=== PATIENT | male | born 1955 | race Caucasian/White ===

== ENCOUNTER 2023-04-22 15:54 | Emergency (ER) | payer MEDICARE, BC, SELFPAY ==
[2023-04-22 17:52] VITALS: BP 126/70; PULSE 106; RESP 16; TEMP 36.1; O2SAT 99; BMI 24.3
--- NOTE | 2023-04-22 19:42 | ED.GENADULT ---
HPI - General Adult General Chief complaint: Constipation Stated complaint: anal blockage Time Seen by Provider: 04/22/23 19:42 History of Present Illness HPI narrative: Patient here today with constipation and loose stool diarrhea passing around what pressure feels like a baseball. History of constipation but never this bad. Took colace this morning, two tablet. No suppositories or enemas. History of pancreatitis, back pain. Two advil at 11 am. 67-year-old man presenting to the emergency department with concern of blockage intense pressure in the rectal area. Sounds like constipation has been building over the week. He has been treating with Colace for what he thinks is some constipation an hour the last couple of days has had loose stool passing around this pressure. He has had to wear depends. He has had constipation before but never like this. Have a history of multilevel fusion in the upper back/neck as well as some surgery in the low back and he is feeling all intense pressure into thighs but not describing radiation down his legs. Feels like he is having a little trouble getting urine out as well. This might be contributing to some of the pressure he is feeling. No fever. Has not been able to sleep for couple of days for the discomfort. Related Data Home Medications Medication Instructions Recorded Confirmed atorvastatin 20 mg tablet 20 mg PO DAILY 04/22/23 04/22/23 lisinopril 10 1 tab PO DAILY 04/22/23 04/22/23 mg-hydrochlorothiazide 12.5 mg tablet Allergies Allergy/AdvReac Type Severity Reaction Status Date / Time No Known Drug Allergies Allergy Verified 04/22/23 17:50 Review of Systems Status of ROS: Reports: 6 or more systems reviewed and unremarkable except as noted in History and below PFSH PFS Social History Smoking Status: Never smoker Do you use any of these nicotine containing products: None Second hand tobacco smoke exposure: No How often do you have a drink containing alcohol: never How often do you have six or more drinks on one occasion: Never AUDIT-C Alcohol total score: 0 Non-prescribed substance use: denies use service: No Exam Narrative: Exam Narrative: Tall man. Little tremulous sitting at the edge of the bed. Breathing easily however. Speaking easily. Moves all extremities with out difficulty. Well-perfused peripherally. Heart is in an elevated rate but regular rhythm. Lungs are clear. Abdomen with present normal bowel sounds. Increasing tension a little bit throughout the suprapubic/lower abdomen. Sense of fullness. No flank pain specifically. Const: Vital Signs, click to edit/add: Vital Signs - 24 hr 04/22/23 17:52 Temperature 97.0 F L Pulse Rate [Right Pulse Oximeter] 106 H Respiratory Rate 16 Blood Pressure [Ri ght Upper Arm] 126/70 Pulse Oximetry 99 Oxygen Delivery Me thod Room Air Documenting provider has reviewed patient's vital signs: yes Course Vital Signs Vital signs: Initial Vital Signs Temperature 97.0 F L 04/22/23 17:52 Temperature Source Temporal Artery Scan 04/22/23 17:52 Pulse Rate 106 H 04/22/23 17:52 Pulse Rhythm Regular 04/22/23 17:52 Respiratory Rate 16 04/22/23 17:52 Blood Pressure 126/70 04/22/23 17:52 Blood Pressure Mean 88 04/22/23 17:52 Blood Pressure Position Sitting 04/22/23 17:52 Pulse Oximetry 99 04/22/23 17:52 Oxygen Delivery Method Room Air 04/22/23 17:52 Vital Signs Temperature 97.0 F L 04/22/23 17:52 Pulse Rate 106 H 04/22/23 17:52 Respiratory Rate 16 04/22/23 17:52 Blood Pressure 126/70 04/22/23 17:52 Pulse Oximetry 99 04/22/23 17:52 Oxygen Delivery Method Room Air 04/22/23 17:52 Temperature 97.0 F L 04/22/23 17:52 Pulse Rate 106 H 04/22/23 17:52 Respiratory Rate 16 04/22/23 17:52 Blood Pressure 126/70 04/22/23 17:52 Pulse Oximetry 99 04/22/23 17:52 Oxygen Delivery Method Room Air 04/22/23 17:52 Medical Decision Making MDM Narrative Medical decision making narrative: Constipation or obstipation I think is leading in differential. Would do a flat plate just to verify some stool location or absence of unusual air-fluid levels that might indicate more of obstruction/ileus. Does not seem to be in location for pancreatitis. May have urinary retention contributing to some of what he is feeling into his back. Will be doing a bladder scan as well. To the discomfort he has been experiencing will placing an IV and receiving IV fluids as well as morphine and ketorolac. I anticipate large volume enema and possible disimpaction. X-ray of the abdomen reviewed by me indeed shows large volume of stool in the rectal colon. Bladder scanned for somewhere between 200-300 mL Fleets was placed. Hard stool encountered. Ultimately Mr. Mc did have a bowel movement and experienced relief. Anxious to leave. Looked otherwise much more relaxed. See patient discharge plan Medical Records Medical records reviewed: Yes I reviewed the patient's medical records Discharge Plan Discharge Clinical Impression: Constipation, Obstipation Patient Disposition: Home w/ Parent or Adult Condition: Improved Additional Instructions: If you notice stool is considering to be quite hard, may want to place an enema once or twice daily over the next couple of days. Another option is suppository overnight. Be sure to get adequate water in drinking 2-3 L of water a day. May want to take MiraLax equivalent a couple to 3 times daily over the next 1-2 weeks adjusting for stool consistency. If you do feel like you need a larger bowel cleanout, magnesium citrate can be helpful. See also fruit lacks recipe for regular dosing. May want to add more orange juice into the mix or modify as you see fit. Prescriptions: No Action atorvastatin 20 mg tablet 20 mg PO DAILY lisinopril-hydrochlorothiazide 10-12.5 mg tablet 1 tab PO DAILY Follow Up/Referrals: Sean Bello MD [Primary Care Provider] - Stand Alone Forms: [employer] Info Instructions
--- NOTE | 2023-04-22 19:55 | CRLHL7_ITS ---
For Patients: As a result of the Century Cures Act, medical imaging exams and procedure reports are released immediately into your electronic medical record. You may view this report before your referring provider. If you have questions, please contact your health care provider. Indication: Constipation. Technique: Abdomen 2 view. Comparison: None. Findings/Impression: Bowel: Bowel pattern is normal. Moderate to large volume stool in the rectum. Soft tissues: No sign of free air. No sign of soft tissue mass. No suspicious calcifications. Bones: Unremarkable for age. Dictated by Jeffrey Combs MD @ 04/22/2023 9:26:50 PM (Electronically Signed)
[2023-04-22] MEDS: 0.9 % SODIUM CHLORIDE 1000 ml 1,000 ML IV (20:11)
[2023-04-22] MEDS: KETOROLAC 30 MG/ML inj IVP (20:15)
[2023-04-22] MEDS: MORPHINE 4 MG/ML INJ IVP (20:15)
== END 2023-04-22 22:44 | disposition home or self-care (01) ==
PROVIDERS: Emergency Provider Family Medicine; PCP Family Medicine
DX: K59.00 Constipation, unspecified (principal)
CPT/HCPCS: 74018; 96374; 96375; 99283; 99284; J1885; J2270; J7030

== ENCOUNTER 2023-06-30 12:54 | Emergency (ER) | payer MEDICARE, BC, SELFPAY ==
[2023-06-30] VITALS (32 sets, daily range): BP systolic 122–162; BP diastolic 74–96; PULSE 76–105; RESP 18; TEMP 36.9–37.7; O2SAT 96–100; BMI 24.3
--- NOTE | 2023-06-30 13:15 | ED.NURSE ---
was given verbal order to place Gonzalez catheter from . catheter placed with initial drained volume of 450 ml.
--- NOTE | 2023-06-30 15:58 | ED.GENADULT ---
HPI - General Adult General Chief complaint: Constipation <Milvia Mondragon MD - Last Filed: 07/04/23 10:11> Stated complaint: post op constipation <Milvia Mondragon MD - Last Filed: 07/04/23 10:11> Time Seen by Provider: 06/30/23 13:47 <Milvia Mondragon MD - Last Filed: 07/04/23 10:11> Source: patient, family, RN notes reviewed and old records reviewed <Milvia Mondragon MD - Last Filed: 07/04/23 10:11> Mode of arrival: ambulatory <Milvia Mondragon MD - Last Filed: 07/04/23 10:11> Limitations: no limitations <Milvia Mondragon MD - Last Filed: 07/04/23 10:11> History of Present Illness HPI narrative: Patient is a 68-year-old male had spinal surgery 3 days ago at [facility]. He has a history of constipation in fact was seen here in the past couple of months requiring an enema. He had a Fleet's enema that time reports that he had very good results. He says they were somewhat concerned about constipation following his surgery, he is on oxycodone for pain. He says they gave him an enema prior to leaving the hospital but he did not have really any results with that. He also notes that he has a strong urge to void, he has a lot of discomfort in his penis and is only able to pee a small amount and then 20 minutes later feels like he has to go again. He does not have dysuria, has not had fevers. Back pain is reasonably well managed. He has had escape of some liquid stool despite his feeling very constipated and like he needs to have a bowel movement. Note that he did have a component of urinary retention when he was seen last time for constipation. <Milvia Mondragon MD - Last Filed: 07/04/23 10:11> Related Data Home medications: Home Medications Medication Instructions Recorded Confirmed atorvastatin 20 mg tablet 20 mg PO DAILY 04/22/23 04/22/23 lisinopril 10 1 tab PO DAILY 04/22/23 04/22/23 mg-hydrochlorothiazide 12.5 mg tablet <Milvia Mnodragon MD - Last Filed: 07/04/23 10:11> Allergies/adverse reactions: Allergies Allergy/AdvReac Type Severity Reaction Status Date / Time No Known Drug Allergies Allergy Verified 06/30/23 13:23 <Milvia Mondragon MD - Last Filed: 07/04/23 10:11> Review of Systems Status of ROS: Reports: 10 or more systems reviewed and unremarkable except as noted in History and below <Milvia Mondragon MD - Last Filed: 07/04/23 10:11> [facility] Social History: Social History Smoking Status: Never smoker Do you use any of these nicotine containing products: None Second hand tobacco smoke exposure: No How often do you have a drink containing alcohol: never How often do you have six or more drinks on one occasion: Never AUDIT-C Alcohol total score: 0 Non-prescribed substance use: denies use service: No <Milvia Mondragon MD - Last Filed: 07/04/23 10:11> Exam Narrative: Exam Narrative: Vital signs as noted above. In general, an alert, well-appearing patient. Head: Normocephalic, atraumatic. Eyes: Pupils are equal reactive. Extraocular movements are full. Conjunctivae are normal. ENT: Mucous membranes are moist. Throat is normal. Neck: Supple without lymphadenopathy. Heart: Regular rate and rhythm. No murmur or rub. Lungs: Clear bilaterally. No increased work of breathing, crackles or wheezes. Abdomen: Soft and nondistended. Minimal tenderness, no rebound guarding or rigidity. Rectal: Copious thick soft stool in the rectum. Good rectal tone. Extremities: Well perfused. No edema. No calf tenderness. Pulses intact. Neurologic: Patient is alert and oriented to person and place. Speech is fluent. Face is symmetric. Moves all extremities equally. Affect: Normal. Skin: Warm and dry. Well perfused. <Milvia Mondragon MD - Last Filed: 07/04/23 10:11> Const: Vital Signs, click to edit/add: Vital Signs - 24 hr 06/30/23 13:20 06/30/23 13:20 06/30/23 16:44 Temperature 98.5 F Pulse Rate 93 Pulse Rate [Right Pulse Oximeter] 76 Respiratory Rate 18 Blood Pressure 162/96 H 157/75 H Blood Pressure [Ri ght Upper Arm] 162/96 H Pulse Oximetry 97 96 Oxygen Delivery Me thod Room Air 06/30/23 16:46 06/30/23 17:00 06/30/23 17:15 Temperature Pulse Rate 100 95 98 Pulse Rate [Right Pulse Oximeter] Respiratory Rate Blood Pressure Blood Pressure [Ri ght Upper Arm] Pulse Oximetry 98 97 98 Oxygen Delivery Me thod 06/30/23 17:21 06/30/23 17:30 06/30/23 17:49 Temperature 99.8 F H Pulse Rate 94 97 Pulse Rate [Right Pulse Oximeter] Respiratory Rate Blood Pressure Blood Pressure [Ri ght Upper Arm] Pulse Oximetry 98 98 Oxygen Delivery Me thod 06/30/23 17:51 06/30/23 17:51 06/30/23 17:52 Temperature Pulse Rate 92 92 93 Pulse Rate [Right Pulse Oximeter] Respiratory Rate Blood Pressure 160/84 H 160/84 H Blood Pressure [Ri ght Upper Arm] Pulse Oximetry 98 98 98 Oxygen Delivery Me thod 06/30/23 18:00 06/30/23 18:01 06/30/23 18:15 Temperature Pulse Rate 98 95 95 Pulse Rate [Right Pulse Oximeter] Respiratory Rate Blood Pressure 148/83 H Blood Pressure [Ri ght Upper Arm] Pulse Oximetry 98 98 98 Oxygen Delivery Me thod 06/30/23 18:30 06/30/23 18:31 06/30/23 18:32 Temperature Pulse Rate 93 96 96 Pulse Rate [Right Pulse Oximeter] Respiratory Rate Blood Pressure 151/85 H Blood Pressure [Ri ght Upper Arm] Pulse Oximetry 98 97 98 Oxygen Delivery Me thod 06/30/23 18:51 06/30/23 19:00 06/30/23 19:01 Temperature Pulse Rate 95 95 95 Pulse Rate [Right Pulse Oximeter] Respiratory Rate Blood Pressure 148/79 H Blood Pressure [Ri ght Upper Arm] Pulse Oximetry 99 98 99 Oxygen Delivery Me thod 06/30/23 19:02 06/30/23 19:15 06/30/23 19:30 Temperature Pulse Rate 96 92 92 Pulse Rate [Right Pulse Oximeter] Respiratory Rate Blood Pressure Blood Pressure [Ri ght Upper Arm] Pulse Oximetry 98 98 98 Oxygen Delivery Me thod 06/30/23 19:31 Temperature Pulse Rate 93 Pulse Rate [Right Pulse Oximeter] Respiratory Rate Blood Pressure 150/74 H Blood Pressure [Ri ght Upper Arm] Pulse Oximetry 98 Oxygen Delivery Me thod <Milvia Mondragon MD - Last Filed: 07/04/23 10:11> Vital Signs, click to edit/add: Vital Signs - 24 hr 06/30/23 13:20 06/30/23 13:20 06/30/23 16:44 Temperature 98.5 F Pulse Rate 93 Pulse Rate [Right Pulse Oximeter] 76 Respiratory Rate 18 Blood Pressure 162/96 H 157/75 H Blood Pressure [Ri ght Upper Arm] 162/96 H Pulse Oximetry 97 96 Oxygen Delivery Me thod Room Air 06/30/23 16:46 06/30/23 17:00 06/30/23 17:15 Temperature Pulse Rate 100 95 98 Pulse Rate [Right Pulse Oximeter] Respiratory Rate Blood Pressure Blood Pressure [Ri ght Upper Arm] Pulse Oximetry 98 97 98 Oxygen Delivery Me thod 06/30/23 17:21 06/30/23 17:30 06/30/23 17:49 Temperature 99.8 F H Pulse Rate 94 97 Pulse Rate [Right Pulse Oximeter] Respiratory Rate Blood Pressure Blood Pressure [Ri ght Upper Arm] Pulse Oximetry 98 98 Oxygen Delivery Me thod 06/30/23 17:51 06/30/23 17:51 06/30/23 17:52 Temperature Pulse Rate 92 92 93 Pulse Rate [Right Pulse Oximeter] Respiratory Rate Blood Pressure 160/84 H 160/84 H Blood Pressure [Ri ght Upper Arm] Pulse Oximetry 98 98 98 Oxygen Delivery Me thod 06/30/23 18:00 06/30/23 18:01 06/30/23 18:15 Temperature Pulse Rate 98 95 95 Pulse Rate [Right Pulse Oximeter] Respiratory Rate Blood Pressure 148/83 H Blood Pressure [Ri ght Upper Arm] Pulse Oximetry 98 98 98 Oxygen Delivery Me thod 06/30/23 18:30 06/30/23 18:31 06/30/23 18:32 Temperature Pulse Rate 93 96 96 Pulse Rate [Right Pulse Oximeter] Respiratory Rate Blood Pressure 151/85 H Blood Pressure [Ri ght Upper Arm] Pulse Oximetry 98 97 98 Oxygen Delivery Me thod 06/30/23 18:51 06/30/23 19:00 01/04/24 19:01 Temperature Pulse Rate 95 95 95 Pulse Rate [Right Pulse Oximeter] Respiratory Rate Blood Pressure 148/79 H Blood Pressure [Ri ght Upper Arm] Pulse Oximetry 99 98 99 Oxygen Delivery Me thod 06/30/23 19:02 06/30/23 19:15 06/30/23 19:30 Temperature Pulse Rate 96 92 92 Pulse Rate [Right Pulse Oximeter] Respiratory Rate Blood Pressure Blood Pressure [Ri ght Upper Arm] Pulse Oximetry 98 98 98 Oxygen Delivery Me thod 06/30/23 19:31 Temperature Pulse Rate 93 Pulse Rate [Right Pulse Oximeter] Respiratory Rate Blood Pressure 150/74 H Blood Pressure [Ri ght Upper Arm] Pulse Oximetry 98 Oxygen Delivery Me thod <Chance Marroquin DO - Last Filed: 06/30/23 22:20> Documenting provider has reviewed patient's vital signs: yes <Milvia Mondragon MD - Last Filed: 07/04/23 10:11> Course Course ED Course: We put a Gonzalez catheter here, with about 500 mL of urine out. His urinary and penile symptoms are resolved with that. I suspect that his urinary retention is largely related to impacted stool rather than an acute neurologic process. Looking through his records, he had a Fleet's enema last time and did well with that, we did try Fleet's here but he was not able to hold anything in did not have any results. As a result, will go ahead and do a tap water enema with him laying down so he is better able to hold on to the fluid and see if he is able to produce better results with that. Assuming we were able to resolve the fecal impaction then I would recommend a trial of void. UA pending. UA shows 10-25 red blood cells but 2-5 white blood cells, I do not think this represents urinary tract infection. He has not had good results with enema, has had liquid stool out but no formed stool. He complains of ongoing abdominal pain which is diffuse, he says it feels like a month ago when he was here with constipation but seems to be getting worse. He feels chilled now as well. Repeat temperature is 99.8?. Abdomen is soft, mild diffuse tenderness. I have ordered labs and a CT to rule out other possible contributing factors to his symptoms. I have reviewed all this with the patient and his . If CT and labs are reassuring, then I think manual disimpaction is going to be the only way to relieve the fecal impaction. He is amenable to that. He does not want to try treatment at home with MiraLax. His says she does not think that he can stand another day or 2 of his current state. If lab or CT show any concerning findings, discuss with neurosurgery at [facility] given that he is 3 days postop. Patient will be signed out to Dr. Marroquin, please see his addendum for final disposition and plan. <Milvia Mondragon MD - Last Filed: 07/04/23 10:11> Vital Signs Vital signs: Initial Vital Signs Temperature 98.5 F 06/30/23 13:20 Temperature Source Temporal Artery Scan 06/30/23 13:20 Pulse Rate 76 06/30/23 13:20 Pulse Rhythm Regular 06/30/23 13:20 Pulse Strength 3+ Normal 06/30/23 13:20 Respiratory Rate 18 06/30/23 13:20 Blood Pressure 162/96 H 06/30/23 13:20 Blood Pressure Mean 118 H 06/30/23 13:20 Blood Pressure Position Sitting 06/30/23 13:20 Pulse Oximetry 97 06/30/23 13:20 Oxygen Delivery Method Room Air 06/30/23 13:20 Vital Signs Temperature 98.5 F 06/30/23 13:20 Pulse Rate 76 06/30/23 13:20 Respiratory Rate 18 06/30/23 13:20 Blood Pressure 162/96 H 06/30/23 13:20 Pulse Oximetry 97 06/30/23 13:20 Oxygen Delivery Method Room Air 06/30/23 13:20 Temperature 99.8 F H 06/30/23 17:21 Pulse Rate 98 06/30/23 20:31 Respiratory Rate 18 06/30/23 13:20 Blood Pressure 128/82 06/30/23 21:31 Pulse Oximetry 99 06/30/23 20:31 Oxygen Delivery Method Room Air 06/30/23 13:20 <Milvia Mondragon MD - Last Filed: 07/04/23 10:11> Initial Vital Signs Temperature 98.5 F 06/30/23 13:20 Temperature Source Temporal Artery Scan 06/30/23 13:20 Pulse Rate 76 06/30/23 13:20 Pulse Rhythm Regular 06/30/23 13:20 Pulse Strength 3+ Normal 06/30/23 13:20 Respiratory Rate 18 06/30/23 13:20 Blood Pressure 162/96 H 06/30/23 13:20 Blood Pressure Mean 118 H 06/30/23 13:20 Blood Pressure Position Sitting 06/30/23 13:20 Pulse Oximetry 97 06/30/23 13:20 Oxygen Delivery Method Room Air 06/30/23 13:20 Vital Signs Temperature 98.5 F 06/30/23 13:20 Pulse Rate 76 06/30/23 13:20 Respiratory Rate 18 06/30/23 13:20 Blood Pressure 162/96 H 06/30/23 13:20 Pulse Oximetry 97 06/30/23 13:20 Oxygen Delivery Method Room Air 06/30/23 13:20 Temperature 99.8 F H 06/30/23 17:21 Pulse Rate 98 06/30/23 20:31 Respiratory Rate 18 06/30/23 13:20 Blood Pressure 128/82 06/30/23 21:31 Pulse Oximetry 99 06/30/23 20:31 Oxygen Delivery Method Room Air 06/30/23 13:20 <Chance Marroquin DO - Last Filed: 06/30/23 22:20> Medications Administered Medications: Discontinued Medications Generic Name Dose Route Start Last Admin Trade Name Freq PRN Reason Stop Dose Admin Magnesium Citrate 300 ml 06/30/23 22:46 06/30/23 23:15 Magnesium Citrate 300 Ml Solution PO 06/30/23 22:47 300 ml ONCE ONE Administration Morphine Sulfate 4 mg 06/30/23 20:17 06/30/23 20:24 Morphine 4 Mg/Ml Inj IVP 06/30/23 20:18 4 mg ONCE ONE Administration Oxycodone HCl 5 mg 06/30/23 17:07 06/30/23 17:20 Oxycodone 5 Mg Tablet PO 06/30/23 17:08 5 mg ONCE ONE Administration <Milvia Mondragon MD - Last Filed: 07/04/23 10:11> Discontinued Medications Generic Name Dose Route Start Last Admin Trade Name Freq PRN Reason Stop Dose Admin Magnesium Citrate 300 ml 06/30/23 22:46 06/30/23 23:15 Magnesium Citrate 300 Ml Solution PO 06/30/23 22:47 300 ml ONCE ONE Administration Morphine Sulfate 4 mg 06/30/23 20:17 06/30/23 20:24 Morphine 4 Mg/Ml Inj IVP 06/30/23 20:18 4 mg ONCE ONE Administration Oxycodone HCl 5 mg 06/30/23 17:07 06/30/23 17:20 Oxycodone 5 Mg Tablet PO 06/30/23 17:08 5 mg ONCE ONE Administration <Chance Marroquin DO - Last Filed: 06/30/23 22:20> Medical Decision Making [facility] Narrative Medical decision making narrative: Patient signed out to me pending lab work and CT scan. His white count within normal limits with no signs of infection. Electrolytes within normal limits along with his kidney function. His liver enzymes are slightly elevated and he does not remember ever being told he has liver issues but this point they are not elevated enough for me to be overtly concerned that he is going to liver failure. I did speak to them about this and told them the follow-up outpatient for it. C CRP is elevated at 7.4 but considering he just had a major surgery this is likely the cause of the elevation. CT scan returned showing a large stool ball as expected. I did do a disimpaction was able to loosen up the stool in get some more stool out. Since he was unable to hold in the 1st Fleet enema due to standing at the time we will do a another 1. He was able to get some stool out at this time he states he is feeling better. I spoke to about removing the Gonzalez versus leaving it in. Since we did have some success with clearing up the fecal impaction he would like fully removed. At this point I believe it is safe to discharge him home. <Chance Marroquin, - Last Filed: 06/30/23 22:20> Lab Data Labs: Lab Results 06/30/23 06/30/23 06/30/23 Range/Units 16:01 17:50 17:50 WBC 6.81 (4.50-11.00) K/uL RBC 3.34 L (4.30-5.90) m/uL Hgb 10.1 L (13.5-17.5) gm/dL Hct 30.5 L (37.0-53.0) % MCV 91 (80-100) fL MCH 30 (26-34) pg MCHC 33 (32-36) gm/dL RDW Coeff of Yissel 12.8 (11.5-15.5) % Plt Count 222 (140-440) K/uL Neut % (Auto) 79.4 H (42.0-72.0) % Lymph % (Auto) 11.3 L (20-44) % Campbell % (Auto) 8.2 (0.0-11.0) % Eos % (Auto) 0.4 (0.0-7.0) % Baso % (Auto) 0.3 (0.0-3.0) % Neut # (Auto) 5.40 (1.7-7.0) K/uL Lymph # (Auto) 0.80 L (0.90-2.90) K/uL Campbell # (Auto) 0.60 (0.00-0.90) K/UL Eos # (Auto) 0.03 (0.00-0.50) K/uL Baso # (Auto) 0.02 (0.00-0.30) K/uL Abs Immat Gran (auto) 0.03 (0.00-0.30) K/uL Imm/Tot Granulo (auto) 0.4 % Sodium 137 (135-149) mmol/L Potassium 4.4 (3.6-5.1) mmol/L Chloride 102 (96-114) mmol/L Carbon Dioxide 29 (20-32) mmol/L Anion Gap 6 L (7-15) mEq/L BUN 11 (7-30) mg/dL Creatinine 1.0 (0.5-1.5) mg/dL Estimated Creat Clear 85.59 Estimated GFR 81 ml/min Glucose 142 H (60-115) mg/dL Lactate 0.7 (0.5-1.9) mmol/L Calcium 9.6 (8.4-10.6) mg/dL Total Bilirubin 0.5 Cancelled (0.1-1.5) mg/dL Direct Bilirubin 0.1 (0.0-0.5) mg/dL AST (12-35) U/L ALT (4-50) U/L Alkaline Phosphatase (40-150) U/L C-Reactive Protein (0.5-1.0) mg/dL Total Protein (6.0-8.3) g/dL Albumin (3.3-5.0) g/dL Lipase (23-300) U/L Urine Color Yellow (Yellow) Urine Appearance Clear (Clear) Urine pH 6.0 (5.0-8.5) Ur Specific Starlight 1.010 (1.000-1.030) Urine Protein Negative (Negative) Urine Glucose (UA) Negative (Negative) Urine Ketones Negative (Negative) Urine Blood 3+ A (Negative) Urine Nitrite Negative (Negative) Urine Bilirubin Negative (Negative) Urine Urobilinogen 0.2 (0.2-1.0) Ur Leukocyte Esterase 1+ A (Negative) Urine RBC 10-25 A (0-2) Urine WBC 2-5 (0-5) Urine WBC Clumps None (None) Ur Squamous Epith Cells None (None-Few) Urine Bacteria Few A (None) 06/30/23 06/30/23 06/30/23 Range/Units 17:50 17:50 17:50 WBC (4.50-11.00) K/uL RBC (4.30-5.90) m/uL Hgb (13.5-17.5) gm/dL Hct (37.0-53.0) % MCV (80-100) fL MCH (26-34) pg MCHC (32-36) gm/dL RDW Coeff of Yissel (11.5-15.5) % Plt Count (140-440) K/uL Neut % (Auto) (42.0-72.0) % Lymph % (Auto) (20-44) % Campbell % (Auto) (0.0-11.0) % Eos % (Auto) (0.0-7.0) % Baso % (Auto) (0.0-3.0) % Neut # (Auto) (1.7-7.0) K/uL Lymph # (Auto) (0.90-2.90) K/uL Campbell # (Auto) (0.00-0.90) K/UL Eos # (Auto) (0.00-0.50) K/uL Baso # (Auto) (0.00-0.30) K/uL Abs Immat Gran (auto) (0.00-0.30) K/uL Imm/Tot Granulo (auto) % Sodium (135-149) mmol/L Potassium (3.6-5.1) mmol/L Chloride (96-114) mmol/L Carbon Dioxide (20-32) mmol/L Anion Gap (7-15) mEq/L BUN (7-30) mg/dL Creatinine (0.5-1.5) mg/dL Estimated Creat Clear Estimated GFR ml/min Glucose (60-115) mg/dL Lactate (0.5-1.9) mmol/L Calcium (8.4-10.6) mg/dL Total Bilirubin (0.1-1.5) mg/dL Direct Bilirubin Cancelled (0.0-0.5) mg/dL AST 61 H Cancelled (12-35) U/L ALT 121 H Cancelled (4-50) U/L Alkaline Phosphatase 232 H (40-150) U/L C-Reactive Protein (0.5-1.0) mg/dL Total Protein (6.0-8.3) g/dL Albumin (3.3-5.0) g/dL Lipase (23-300) U/L Urine Color (Yellow) Urine Appearance (Clear) Urine pH (5.0-8.5) Ur Specific Starlight (1.000-1.030) Urine Protein (Negative) Urine Glucose (UA) (Negative) Urine Ketones (Negative) Urine Blood (Negative) Urine Nitrite (Negative) Urine Bilirubin (Negative) Urine Urobilinogen (0.2-1.0) Ur Leukocyte Esterase (Negative) Urine RBC (0-2) Urine WBC (0-5) Urine WBC Clumps (None) Ur Squamous Epith Cells (None-Few) Urine Bacteria (None) 06/30/23 06/30/23 06/30/23 Range/Units 17:50 17:50 17:50 WBC (4.50-11.00) K/uL RBC (4.30-5.90) m/uL Hgb (13.5-17.5) gm/dL Hct (37.0-53.0) % MCV (80-100) fL MCH (26-34) pg MCHC (32-36) gm/dL RDW Coeff of Yissel (11.5-15.5) % Plt Count (140-440) K/uL Neut % (Auto) (42.0-72.0) % Lymph % (Auto) (20-44) % Campbell % (Auto) (0.0-11.0) % Eos % (Auto) (0.0-7.0) % Baso % (Auto) (0.0-3.0) % Neut # (Auto) (1.7-7.0) K/uL Lymph # (Auto) (0.90-2.90) K/uL Campbell # (Auto) (0.00-0.90) K/UL Eos # (Auto) (0.00-0.50) K/uL Baso # (Auto) (0.00-0.30) K/uL Abs Immat Gran (auto) (0.00-0.30) K/uL Imm/Tot Granulo (auto) % Sodium (135-149) mmol/L Potassium (3.6-5.1) mmol/L Chloride (96-114) mmol/L Carbon Dioxide (20-32) mmol/L Anion Gap (7-15) mEq/L BUN (7-30) mg/dL Creatinine (0.5-1.5) mg/dL Estimated Creat Clear Estimated GFR ml/min Glucose (60-115) mg/dL Lactate (0.5-1.9) mmol/L Calcium (8.4-10.6) mg/dL Total Bilirubin (0.1-1.5) mg/dL Direct Bilirubin (0.0-0.5) mg/dL AST (12-35) U/L ALT (4-50) U/L Alkaline Phosphatase Cancelled (40-150) U/L C-Reactive Protein 7.4 H (0.5-1.0) mg/dL Total Protein 6.8 Cancelled (6.0-8.3) g/dL Albumin 4.0 Cancelled (3.3-5.0) g/dL Lipase 38 (23-300) U/L Urine Color (Yellow) Urine Appearance (Clear) Urine pH (5.0-8.5) Ur Specific Starlight (1.000-1.030) Urine Protein (Negative) Urine Glucose (UA) (Negative) Urine Ketones (Negative) Urine Blood (Negative) Urine Nitrite (Negative) Urine Bilirubin (Negative) Urine Urobilinogen (0.2-1.0) Ur Leukocyte Esterase (Negative) Urine RBC (0-2) Urine WBC (0-5) Urine WBC Clumps (None) Ur Squamous Epith Cells (None-Few) Urine Bacteria (None) 06/30/23 Range/Units 17:50 WBC (4.50-11.00) K/uL RBC (4.30-5.90) m/uL Hgb (13.5-17.5) gm/dL Hct (37.0-53.0) % MCV (80-100) fL MCH (26-34) pg MCHC (32-36) gm/dL RDW Coeff of Yissel (11.5-15.5) % Plt Count (140-440) K/uL Neut % (Auto) (42.0-72.0) % Lymph % (Auto) (20-44) % Campbell % (Auto) (0.0-11.0) % Eos % (Auto) (0.0-7.0) % Baso % (Auto) (0.0-3.0) % Neut # (Auto) (1.7-7.0) K/uL Lymph # (Auto) (0.90-2.90) K/uL Campbell # (Auto) (0.00-0.90) K/UL Eos # (Auto) (0.00-0.50) K/uL Baso # (Auto) (0.00-0.30) K/uL Abs Immat Gran (auto) (0.00-0.30) K/uL Imm/Tot Granulo (auto) % Sodium (135-149) mmol/L Potassium (3.6-5.1) mmol/L Chloride (96-114) mmol/L Carbon Dioxide (20-32) mmol/L Anion Gap (7-15) mEq/L BUN (7-30) mg/dL Creatinine (0.5-1.5) mg/dL Estimated Creat Clear Estimated GFR ml/min Glucose (60-115) mg/dL Lactate (0.5-1.9) mmol/L Calcium (8.4-10.6) mg/dL Total Bilirubin (0.1-1.5) mg/dL Direct Bilirubin (0.0-0.5) mg/dL AST (12-35) U/L ALT (4-50) U/L Alkaline Phosphatase (40-150) U/L C-Reactive Protein (0.5-1.0) mg/dL Total Protein (6.0-8.3) g/dL Albumin (3.3-5.0) g/dL Lipase Cancelled (23-300) U/L Urine Color (Yellow) Urine Appearance (Clear) Urine pH (5.0-8.5) Ur Specific Starlight (1.000-1.030) Urine Protein (Negative) Urine Glucose (UA) (Negative) Urine Ketones (Negative) Urine Blood (Negative) Urine Nitrite (Negative) Urine Bilirubin (Negative) Urine Urobilinogen (0.2-1.0) Ur Leukocyte Esterase (Negative) Urine RBC (0-2) Urine WBC (0-5) Urine WBC Clumps (None) Ur Squamous Epith Cells (None-Few) Urine Bacteria (None) <Milvia Mondragon MD - Last Filed: 07/04/23 10:11> Lab Results 06/30/23 06/30/23 06/30/23 Range/Units 16:01 17:50 17:50 WBC 6.81 (4.50-11.00) K/uL RBC 3.34 L (4.30-5.90) m/uL Hgb 10.1 L (13.5-17.5) gm/dL Hct 30.5 L (37.0-53.0) % MCV 91 (80-100) fL MCH 30 (26-34) pg MCHC 33 (32-36) gm/dL RDW Coeff of Yissel 12.8 (11.5-15.5) % Plt Count 222 (140-440) K/uL Neut % (Auto) 79.4 H (42.0-72.0) % Lymph % (Auto) 11.3 L (20-44) % Campbell % (Auto) 8.2 (0.0-11.0) % Eos % (Auto) 0.4 (0.0-7.0) % Baso % (Auto) 0.3 (0.0-3.0) % Neut # (Auto) 5.40 (1.7-7.0) K/uL Lymph # (Auto) 0.80 L (0.90-2.90) K/uL Campbell # (Auto) 0.60 (0.00-0.90) K/UL Eos # (Auto) 0.03 (0.00-0.50) K/uL Baso # (Auto) 0.02 (0.00-0.30) K/uL Abs Immat Gran (auto) 0.03 (0.00-0.30) K/uL Imm/Tot Granulo (auto) 0.4 % Sodium 137 (135-149) mmol/L Potassium 4.4 (3.6-5.1) mmol/L Chloride 102 (96-114) mmol/L Carbon Dioxide 29 (20-32) mmol/L Anion Gap 6 L (7-15) mEq/L BUN 11 (7-30) mg/dL Creatinine 1.0 (0.5-1.5) mg/dL Estimated Creat Clear 85.59 Estimated GFR 81 ml/min Glucose 142 H (60-115) mg/dL Lactate 0.7 (0.5-1.9) mmol/L Calcium 9.6 (8.4-10.6) mg/dL Total Bilirubin 0.5 Cancelled (0.1-1.5) mg/dL Direct Bilirubin 0.1 (0.0-0.5) mg/dL AST (12-35) U/L ALT (4-50) U/L Alkaline Phosphatase (40-150) U/L C-Reactive Protein (0.5-1.0) mg/dL Total Protein (6.0-8.3) g/dL Albumin (3.3-5.0) g/dL Lipase (23-300) U/L Urine Color Yellow (Yellow) Urine Appearance Clear (Clear) Urine pH 6.0 (5.0-8.5) Ur Specific Starlight 1.010 (1.000-1.030) Urine Protein Negative (Negative) Urine Glucose (UA) Negative (Negative) Urine Ketones Negative (Negative) Urine Blood 3+ A (Negative) Urine Nitrite Negative (Negative) Urine Bilirubin Negative (Negative) Urine Urobilinogen 0.2 (0.2-1.0) Ur Leukocyte Esterase 1+ A (Negative) Urine RBC 10-25 A (0-2) Urine WBC 2-5 (0-5) Urine WBC Clumps None (None) Ur Squamous Epith Cells None (None-Few) Urine Bacteria Few A (None) 06/30/23 06/30/23 06/30/23 Range/Units 17:50 17:50 17:50 WBC (4.50-11.00) K/uL RBC (4.30-5.90) m/uL Hgb (13.5-17.5) gm/dL Hct (37.0-53.0) % MCV (80-100) fL MCH (26-34) pg MCHC (32-36) gm/dL RDW Coeff of Yissel (11.5-15.5) % Plt Count (140-440) K/uL Neut % (Auto) (42.0-72.0) % Lymph % (Auto) (20-44) % Campbell % (Auto) (0.0-11.0) % Eos % (Auto) (0.0-7.0) % Baso % (Auto) (0.0-3.0) % Neut # (Auto) (1.7-7.0) K/uL Lymph # (Auto) (0.90-2.90) K/uL Campbell # (Auto) (0.00-0.90) K/UL Eos # (Auto) (0.00-0.50) K/uL Baso # (Auto) (0.00-0.30) K/uL Abs Immat Gran (auto) (0.00-0.30) K/uL Imm/Tot Granulo (auto) % Sodium (135-149) mmol/L Potassium (3.6-5.1) mmol/L Chloride (96-114) mmol/L Carbon Dioxide (20-32) mmol/L Anion Gap (7-15) mEq/L BUN (7-30) mg/dL Creatinine (0.5-1.5) mg/dL Estimated Creat Clear Estimated GFR ml/min Glucose (60-115) mg/dL Lactate (0.5-1.9) mmol/L Calcium (8.4-10.6) mg/dL Total Bilirubin (0.1-1.5) mg/dL Direct Bilirubin Cancelled (0.0-0.5) mg/dL AST 61 H Cancelled (12-35) U/L ALT 121 H Cancelled (4-50) U/L Alkaline Phosphatase 232 H (40-150) U/L C-Reactive Protein (0.5-1.0) mg/dL Total Protein (6.0-8.3) g/dL Albumin (3.3-5.0) g/dL Lipase (23-300) U/L Urine Color (Yellow) Urine Appearance (Clear) Urine pH (5.0-8.5) Ur Specific Starlight (1.000-1.030) Urine Protein (Negative) Urine Glucose (UA) (Negative) Urine Ketones (Negative) Urine Blood (Negative) Urine Nitrite (Negative) Urine Bilirubin (Negative) Urine Urobilinogen (0.2-1.0) Ur Leukocyte Esterase (Negative) Urine RBC (0-2) Urine WBC (0-5) Urine WBC Clumps (None) Ur Squamous Epith Cells (None-Few) Urine Bacteria (None) 06/30/23 06/30/23 06/30/23 Range/Units 17:50 17:50 17:50 WBC (4.50-11.00) K/uL RBC (4.30-5.90) m/uL Hgb (13.5-17.5) gm/dL Hct (37.0-53.0) % MCV (80-100) fL MCH (26-34) pg MCHC (32-36) gm/dL RDW Coeff of Yissel (11.5-15.5) % Plt Count (140-440) K/uL Neut % (Auto) (42.0-72.0) % Lymph % (Auto) (20-44) % Campbell % (Auto) (0.0-11.0) % Eos % (Auto) (0.0-7.0) % Baso % (Auto) (0.0-3.0) % Neut # (Auto) (1.7-7.0) K/uL Lymph # (Auto) (0.90-2.90) K/uL Campbell # (Auto) (0.00-0.90) K/UL Eos # (Auto) (0.00-0.50) K/uL Baso # (Auto) (0.00-0.30) K/uL Abs Immat Gran (auto) (0.00-0.30) K/uL Imm/Tot Granulo (auto) % Sodium (135-149) mmol/L Potassium (3.6-5.1) mmol/L Chloride (96-114) mmol/L Carbon Dioxide (20-32) mmol/L Anion Gap (7-15) mEq/L BUN (7-30) mg/dL Creatinine (0.5-1.5) mg/dL Estimated Creat Clear Estimated GFR ml/min Glucose (60-115) mg/dL Lactate (0.5-1.9) mmol/L Calcium (8.4-10.6) mg/dL Total Bilirubin (0.1-1.5) mg/dL Direct Bilirubin (0.0-0.5) mg/dL AST (12-35) U/L ALT (4-50) U/L Alkaline Phosphatase Cancelled (40-150) U/L C-Reactive Protein 7.4 H (0.5-1.0) mg/dL Total Protein 6.8 Cancelled (6.0-8.3) g/dL Albumin 4.0 Cancelled (3.3-5.0) g/dL Lipase 38 (23-300) U/L Urine Color (Yellow) Urine Appearance (Clear) Urine pH (5.0-8.5) Ur Specific Starlight (1.000-1.030) Urine Protein (Negative) Urine Glucose (UA) (Negative) Urine Ketones (Negative) Urine Blood (Negative) Urine Nitrite (Negative) Urine Bilirubin (Negative) Urine Urobilinogen (0.2-1.0) Ur Leukocyte Esterase (Negative) Urine RBC (0-2) Urine WBC (0-5) Urine WBC Clumps (None) Ur Squamous Epith Cells (None-Few) Urine Bacteria (None) 06/30/23 Range/Units 17:50 WBC (4.50-11.00) K/uL RBC (4.30-5.90) m/uL Hgb (13.5-17.5) gm/dL Hct (37.0-53.0) % MCV (80-100) fL MCH (26-34) pg MCHC (32-36) gm/dL RDW Coeff of Yissel (11.5-15.5) % Plt Count (140-440) K/uL Neut % (Auto) (42.0-72.0) % Lymph % (Auto) (20-44) % Campbell % (Auto) (0.0-11.0) % Eos % (Auto) (0.0-7.0) % Baso % (Auto) (0.0-3.0) % Neut # (Auto) (1.7-7.0) K/uL Lymph # (Auto) (0.90-2.90) K/uL Campbell # (Auto) (0.00-0.90) K/UL Eos # (Auto) (0.00-0.50) K/uL Baso # (Auto) (0.00-0.30) K/uL Abs Immat Gran (auto) (0.00-0.30) K/uL Imm/Tot Granulo (auto) % Sodium (135-149) mmol/L Potassium (3.6-5.1) mmol/L Chloride (96-114) mmol/L Carbon Dioxide (20-32) mmol/L Anion Gap (7-15) mEq/L BUN (7-30) mg/dL Creatinine (0.5-1.5) mg/dL Estimated Creat Clear Estimated GFR ml/min Glucose (60-115) mg/dL Lactate (0.5-1.9) mmol/L Calcium (8.4-10.6) mg/dL Total Bilirubin (0.1-1.5) mg/dL Direct Bilirubin (0.0-0.5) mg/dL AST (12-35) U/L ALT (4-50) U/L Alkaline Phosphatase (40-150) U/L C-Reactive Protein (0.5-1.0) mg/dL Total Protein (6.0-8.3) g/dL Albumin (3.3-5.0) g/dL Lipase Cancelled (23-300) U/L Urine Color (Yellow) Urine Appearance (Clear) Urine pH (5.0-8.5) Ur Specific Starlight (1.000-1.030) Urine Protein (Negative) Urine Glucose (UA) (Negative) Urine Ketones (Negative) Urine Blood (Negative) Urine Nitrite (Negative) Urine Bilirubin (Negative) Urine Urobilinogen (0.2-1.0) Ur Leukocyte Esterase (Negative) Urine RBC (0-2) Urine WBC (0-5) Urine WBC Clumps (None) Ur Squamous Epith Cells (None-Few) Urine Bacteria (None) <Chance Marroquin, - Last Filed: 06/30/23 22:20> Imaging Data CT scan abdomen and pelvis: Radiologist's impression: 1. No acute abdominal process. 2. Large amount of stool within the distal colon with distention of the rectosigmoid junction. 3. Postop changes of L3 through L5 dorsal lateral fusion and laminectomies. No acute postoperative complications. Please note that all CT scans at this facility use dose modulation, iterative reconstruction, and/or weight-based dosing when appropriate to reduce radiation dose to as low as reasonably achievable. Dictated by Jeremiah Mark MD @ 06/30/2023 8:14:33 PM <Chance Marroquin DO - Last Filed: 06/30/23 22:20> Discharge Plan Discharge Clinical Impression: Fecal impaction <Milvia Mondragon MD - Last Filed: 07/04/23 10:11> Patient Disposition: Home, Self-Care <Milvia Mondragon MD - Last Filed: 07/04/23 10:11> Condition: Improved <Milvia Mondragon MD - Last Filed: 07/04/23 10:11> Instructions: Fecal Impaction (ED) <Milvia Mondragon MD - Last Filed: 07/04/23 10:11> Additional Instructions: Continue to take your home stool softeners and add MiraLax twice daily. Also gave you a bottle of magnesium citrate to drink. Return to emergency department for new or worsening symptoms. <Milvia Mondragon MD - Last Filed: 07/04/23 10:11> Activity Level: No Restrictions <Milvia Mondragon MD - Last Filed: 07/04/23 10:11> No Restrictions <Chance Marroquin DO - Last Filed: 06/30/23 22:20> Discharge Diet: Regular <Milvia Mondragon MD - Last Filed: 07/04/23 10:11> Regular <Chance Marroquin DO - Last Filed: 06/30/23 22:20> Prescriptions: No Action atorvastatin 20 mg tablet 20 mg PO DAILY lisinopril-hydrochlorothiazide 10-12.5 mg tablet 1 tab PO DAILY <Milvia Mondragon MD - Last Filed: 07/04/23 10:11> Follow Up/Referrals: Sean Bello MD [Primary Care Provider] - <Milvia Mondragon MD - Last Filed: 07/04/23 10:11> Stand Alone Forms: MyHealth Info Instructions <Milvia Mondragon MD - Last Filed: 07/04/23 10:11>
[2023-06-30 16:41] LABS: Appearance Urine Clear (Clear); Bilirubin Urine Negative (Negative); Blood Urine 3+ (Negative); Color Urine Yellow (Yellow); Glucose Urine Negative (Negative); Ketones Urine Negative (Negative); Leukocyte Esterase Urine 1+ (Negative); Nitrite Urine Negative (Negative); Protein Urine Negative (Negative); Urobilinogen Urine 0.2 (0.2-1.0)
[2023-06-30 16:58] LABS: Bacteria Urine Few
--- NOTE | 2023-06-30 17:14 | CRLHL7_ITS ---
For Patients: As a result of the Century Cures Act, medical imaging exams and procedure reports are released immediately into your electronic medical record. You may view this report before your referring provider. If you have questions, please contact your health care provider. INDICATION: Abdominal pain. Constipation. TECHNIQUE: CT abdomen and pelvis with 98 cc of Isovue 370 intravenous contrast. Multiplanar reformats included. COMPARISON: None. FINDINGS: Lower chest: Unremarkable. Liver: Normal in size and attenuation. No suspicious masses. Gallbladder and bile ducts: No stones or inflammation. No biliary dilatation. Pancreas: Unremarkable. No mass or inflammation. Spleen: Normal in size. No masses. Multiple calcified splenic granulomas. Adrenal glands: Normal in size. No nodules. Kidneys: Normal in size. No suspicious masses, stones, or hydronephrosis. GI tract: Large amount of stool is present within the distal colon. There is distention of the rectosigmoid junction. No sign of mass or inflammation. Normal appendix. Vasculature: Unremarkable. Lymph nodes: No lymphadenopathy. Abdominal wall/Omentum/Peritoneum: Unremarkable. No sign of mass or infiltration. No free air or significant free fluid. Pelvis: Unremarkable. No pelvic masses. Bones: Right total hip arthroplasty. L3 through L5 dorsal lateral fusion and laminectomies. No postoperative complications. No acute osseous abnormalities. IMPRESSION: 1. No acute abdominal process. 2. Large amount of stool within the distal colon with distention of the rectosigmoid junction. 3. Postop changes of L3 through L5 dorsal lateral fusion and laminectomies. No acute postoperative complications. Please note that all CT scans at this facility use dose modulation, iterative reconstruction, and/or weight-based dosing when appropriate to reduce radiation dose to as low as reasonably achievable. Dictated by Jeremiah Mark MD @ 06/30/2023 8:14:33 PM (Electronically Signed)
[2023-06-30] MEDS: OXYCODONE 5 MG TABLET PO (17:20)
[2023-06-30 17:55] LABS: Lactate Sepsis w/Reflex* 0.7 mmol/L (0.5-1.9)
[2023-06-30 17:59] LABS: Basophils Absolute Auto 0.02 K/uL (0.00-0.30); Basophils Percent Auto 0.3 % (0.0-3.0); Eosinophils Absolute Auto 0.03 K/uL (0.00-0.50); Eosinophils Percent Auto 0.4 % (0.0-7.0); Hematocrit 30.5 % (37.0-53.0); Hemoglobin* 10.1 gm/dL (13.5-17.5); Immature Granulocytes Abs Auto 0.03 K/uL (0.00-0.30); Immature Granulocytes Pct Auto 0.4 %; Lymphocytes Percent Auto 11.3 % (20-44); Mean Corpuscular HGB Conc 33 gm/dL (32-36); Mean Corpuscular Hemoglobin 30 pg (26-34); Mean Corpuscular Volume 91 fL (80-100); Monocytes Percent Auto 8.2 % (0.0-11.0); Neutrophils Percent Auto 79.4 % (42.0-72.0); Platelet Count* 222 K/uL (140-440); RDW Coefficient of Variation % 12.8 % (11.5-15.5); Red Blood Count 3.34 m/uL (4.30-5.90); White Blood Count* 6.81 K/uL (4.50-11.00)
[2023-06-30 18:15] LABS: Chloride* 102 mmol/L (96-114); Potassium* 4.4 mmol/L (3.6-5.1); Sodium* 137 mmol/L (135-149)
--- NOTE | 2023-06-30 18:16 | ED.NURSE ---
pt cleaned up and brief changed, pt back in bed, call light within reach.
[2023-06-30 18:17] LABS: Bilirubin Direct* 0.1 mg/dL (0.0-0.5); Bilirubin Total* 0.5 mg/dL (0.1-1.5)
[2023-06-30 18:18] LABS: Alanine Aminotransferase* 121 U/L (4-50); Alkaline Phosphatase* 232 U/L (40-150); Anion Gap 6 mEq/L (7-15); Aspartate Amino Transferase* 61 U/L (12-35); Blood Urea Nitrogen* 11 mg/dL (7-30); Carbon Dioxide* 29 mmol/L (20-32); Glucose* 142 mg/dL (60-115); Lipase* 38 U/L (23-300); Total Protein* 6.8 g/dL (6.0-8.3)
[2023-06-30 18:19] LABS: Calcium* 9.6 mg/dL (8.4-10.6)
[2023-06-30 18:21] LABS: C Reactive Protein* 7.4 mg/dL (0.5-1.0)
[2023-06-30 18:23] LABS: Slide Review Reflex No
[2023-06-30 18:37] LABS: Est. Creatinine Clearance* 85.59; Estimated Glomerular Filt Rate 81 ml/min
[2023-06-30] MEDS: MORPHINE 4 MG/ML INJ IVP (20:24)
[2023-06-30] MEDS: MAGNESIUM CITRATE 300 ML SOLUTION PO (23:15)
== END 2023-06-30 22:50 | disposition home or self-care (01) ==
PROVIDERS: Emergency Medicine; Emergency Provider Student in an Organized Health Care Education/Training Program; PCP Family Medicine
DX: K56.41 Fecal impaction (principal)
CPT/HCPCS: 36415; 74177; 80048; 80076; 81001; 83605; 83690; 85025; 86140; 87086; 96374; 99283; 99284; 99285; A9270; J2270; Q9967

== ENCOUNTER 2023-09-12 07:36 | Outpatient (CLI) | payer MEDICARE, BC, SELFPAY ==
--- NOTE | 2023-09-12 08:00 | XR_ITS ---
Patient: MARIAN BARNES Facility:?[facility] Patient ID:?[id number] Site Patient ID:?[id number] Site :?[id number] Study:?XRay-Spine Lumbar 2V-09/12/2023 7:58:38 AM Ordering Physician:HAI SIDHU MD Final Report: Indication: ARTHRODESIS STATUS Technique: Lumbar spine 2 view Comparison: 08/08/2023 IMPRESSION: Posterior fusion hardware L3 through L5. No fracture. Dictated by Jey Botello MD @ 09/12/2023 8:49:44 AM Signed by:?Jey Botello MD @09/12/2023 8:49:44 AM (Electronic Signature)
== END 2023-09-12 07:37 | disposition home or self-care (01) ==
LOC: RAD 07:37
PROVIDERS: PCP Family Medicine; Visit Provider Orthopaedic Surgery Orthopaedic Surgery of the Spine
DX: Z98.1 Arthrodesis status (principal)
CPT/HCPCS: 72100